=== PATIENT | male | born 1980 | race Caucasian/White ===

== ENCOUNTER 2016-03-08 11:29 | Emergency (ER) | payer OTHER ==
[~2016-03-08] VITALS: Ht 182.9 cm; Wt 111.3 kg
[2016-03-08 11:39] VITALS: TEMP 36.7; Ht 182.9 cm; Wt 111.3 kg
[2016-03-08] MEDS ORDERED: MECLIZINE HCL 25 MG TAB PO STA (12:16)
[2016-03-08] MEDS ORDERED: ONDANSETRON 4MG OD TAB PO STA (12:16)
--- NOTE | 2016-03-08 12:47 | DIAGNOSTIC IMAGING REPORT ---
CT OF THE CERVICAL SPINE WITHOUT CONTRAST CLINICAL HISTORY: Neck pain following injury. Dizziness COMPARISON STUDY: Cervical spine CT June 01, 2013. TECHNIQUE: Helical axial images of the cervical spine were obtained without IV contrast. Sagittal and coronal reconstructions were viewed. FINDINGS: Alignment of the cervical spine is anatomic. The craniocervical junction is intact. There is no acute fracture. No prevertebral edema is present. Minimal multilevel degenerative changes are present. IMPRESSION: No acute cervical spine fracture or subluxation. Electronically signed by: Hugh Workman M.D. 03/08/2016 12:45 PM Dictated Date/Time: 03/08/2016 12:41 PM
--- NOTE | 2016-03-08 12:48 | DIAGNOSTIC IMAGING REPORT ---
CT HEAD WITHOUT CONTRAST (CT) CLINICAL HISTORY: head injury, dizziness COMPARISON STUDY: 06/01/2013 TECHNIQUE: Axial CT of the brain is performed from the vertex to the skull base. IV contrast was not administered for this examination. CT DOSE: FINDINGS: No intra or extra-axial mass lesions are visualized. There is no CT evidence of acute cortical infarction. There is no evidence of midline shift. There is no acute hemorrhage. No calvarial fractures are visualized. There is no evidence of pathologic ventricular dilatation. There is no evidence of acute sinusitis. There is minor left maxilla sinus mucosal thickening. There is decreased mastoid pneumatization with chronic changes of the left. There is probable fluid within the left middle ear cavity. This is a chronic finding. IMPRESSION: No acute intracranial findings Electronically signed by: Hany Livingston M.D. 03/08/2016 12:46 PM Dictated Date/Time: 03/08/2016 12:44 PM
--- NOTE | 2016-03-08 12:56 | DIAGNOSTIC IMAGING REPORT ---
LEFT FOREARM 2 VIEWS CLINICAL HISTORY: Left forearm pain. Injury one month ago. FINDINGS: AP and lateral views of the left forearm are obtained No prior studies are available for comparison at the time of dictation. The skeletal structures are well mineralized. No fracture is seen. The wrist and elbow joints are grossly maintained. Soft tissue swelling is noted, greatest dorsally and around the wrist. IMPRESSION: Soft tissue swelling with no fracture identified. Electronically signed by: Tj Savage M.D. 03/08/2016 12:54 PM Dictated Date/Time: 03/08/2016 12:53 PM
[2016-03-08] MEDS ORDERED: MECL1TAB42 PO (14:24)
[2016-03-08] MEDS ORDERED: ONDA4TAB10 SL (14:24)
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
[2016-03-08 15:00] VITALS: BP 156/87; PULSE 57; O2SAT 97
--- NOTE | 2016-03-11 09:28 | EDITING REQUIRED CODING QUERY ---
TREATMENT RENDERED WITHOUT A DIAGNOSIS 79 To promote full compliance with coding requirements relating to patient care, physician participation is requested in all cases of medical billing coder uncertainty. Please assist us with the question(s) below: Coding Question: Please add a FINAL IMPRESSION for this ED Patient See addended note by PAULINE Mock Provider Response: Thank you Asuncion Crawford
== END 2016-03-08 15:15 | disposition home or self-care (01) ==
LOC: C.EDB 11:31 → C.EDD 15:15
DX: R42 Dizziness and giddiness (principal); M79.632 Pain in left forearm; Z87.828 Personal history of other (healed) physical injury and trauma; Z87.891 Personal history of nicotine dependence

== ENCOUNTER 2016-11-03 21:19 | Emergency (ER) | payer OTHER ==
[~2016-11-03] VITALS: Ht 182.9 cm; Wt 111.2 kg
[2016-11-03 21:23] VITALS: TEMP 37.2; Ht 182.9 cm; Wt 111.2 kg
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
[2016-11-03 23:15] VITALS: BP 129/75; PULSE 65; O2SAT 97
== END 2016-11-03 23:25 | disposition home or self-care (01) ==
LOC: C.EDB 21:21 → C.EDC 23:25
DX: S87.81XA Crushing injury of right lower leg, initial encounter (principal); S16.1XXA Strain of muscle, fascia and tendon at neck level, initial encounter; W22.8XXA Striking against or struck by other objects, initial encounter; Y92.018 Other place in single-family (private) house as the place of occurrence of the external cause; Z80.9 Family history of malignant neoplasm, unspecified; Z83.3 Family history of diabetes mellitus; Z87.891 Personal history of nicotine dependence

== ENCOUNTER 2017-06-21 20:23 | Emergency (ER) | payer OTHER ==
[~2017-06-21] VITALS: Ht 182.9 cm; Wt 112.0 kg
[2017-06-21 20:46] VITALS: TEMP 36.7; Ht 182.9 cm; Wt 112.0 kg
--- NOTE | 2017-06-21 21:51 | DIAGNOSTIC IMAGING REPORT ---
L ELBOW MIN 3 VIEWS ROUTINE HISTORY: 37 years-old Male left elbow pain s/p fall acute left elbow pain status post fall COMPARISON: None available TECHNIQUE: 3 views of the left elbow FINDINGS: Minimal marginal spurring of the olecranon process and coronoid process. There is no acute fracture, dislocation or large joint effusion. Mild medial soft tissue swelling without opaque foreign body. IMPRESSION: Mild soft tissue swelling without acute fracture. The above report was generated using voice recognition software. It may contain grammatical, syntax or spelling errors. Electronically signed by: Genaro Jiménez M.D. 06/21/2017 9:50 PM Dictated Date/Time: 06/21/2017 9:49 PM
--- NOTE | 2017-06-21 21:53 | DIAGNOSTIC IMAGING REPORT ---
L HIP UNILATERAL 2 VIEWS HISTORY: 37 years-old Male left groin/hip pain acute left hip pain COMPARISON: None available TECHNIQUE: 2 views of the left hip FINDINGS: There is no acute fracture, dislocation or significant degenerative changes. Imaged left hemipelvis also appears intact. Soft tissues are unremarkable. IMPRESSION: No acute fracture or dislocation. The above report was generated using voice recognition software. It may contain grammatical, syntax or spelling errors. Electronically signed by: Genaro Jiménez M.D. 06/21/2017 9:52 PM Dictated Date/Time: 06/21/2017 9:50 PM
--- NOTE | 2017-06-21 21:54 | DIAGNOSTIC IMAGING REPORT ---
L KNEE 3 VIEWS HISTORY: 37 years-old Male left knee pain s/p fall acute left knee pain status post fall COMPARISON: Left knee radiographs 04/13/2015 TECHNIQUE: 3 views of the left knee FINDINGS: Mild medial soft tissue swelling without acute fracture, dislocation, significant degenerative changes, radiopaque foreign body or large joint effusion. IMPRESSION: Mild medial soft tissue swelling without fracture. The above report was generated using voice recognition software. It may contain grammatical, syntax or spelling errors. Electronically signed by: Genaro Jiménez M.D. 06/21/2017 9:53 PM Dictated Date/Time: 06/21/2017 9:52 PM
[2017-06-21] MEDS ORDERED: IBUPROFEN 800 MG TAB PO STA (21:57)
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
[2017-06-21 22:09] VITALS: BP 153/80; PULSE 76; O2SAT 97
== END 2017-06-21 22:07 | disposition home or self-care (01) ==
LOC: C.EDB 20:23 → C.EDD 22:07
DX: T14.8XXA Other injury of unspecified body region, initial encounter (principal); S76.012A Strain of muscle, fascia and tendon of left hip, initial encounter; W17.89XA Other fall from one level to another, initial encounter; Y92.89 Other specified places as the place of occurrence of the external cause; Y93.72 Activity, wrestling